=== PATIENT | male | born 1990 | race Hispanic/Latino ===

== ENCOUNTER 2016-10-21 22:11 | Emergency (ER) | payer OTHER ==
--- NOTE | 2016-10-21 22:43 | ED THROAT/DENTAL COMPLAINT ---
History of Present Illness General Chief Complaint: General Adult Stated Complaint: PT TONSIL IS SWOLLEN Source: patient Exam Limitations: no limitations Vital Signs & Intake/Output Vital Signs & Intake/Output Vital Signs Date Time Temp Pulse Resp B/P B/P Pulse O2 O2 Flow FiO2 Mean Ox Delivery Rate 10/22 0108 97.0 78 22 107/63 98 10/21 2218 100.0 89 20 130/80 98 Room Air ED Intake and Output 10/22 0000 10/21 1200 Intake Total Output Total Balance Patient 200 lb Weight Allergies Coded Allergies: No Known Allergies (10/21/16) Reconcile Medications Amoxicillin/Potassium Clav (Augmentin 875-125 Tablet) 875 MG-125 MG TABLET 1 TAB PO BID peritonsillar abscess Methylprednisolone. (Medrol) 4 MG TAB.DS.PK 1 DP PO AD inflammation 6 on day 1 then reduce by one tablet daily until gone Triage Note: PER PT RT TONSIL SWOLLEN PT REPORTS CANT SPEAK BUT DOES ITS JUSST PAINFUL Triage Nurses Notes Reviewed? yes Onset: Gradual Duration: day(s): (2) Timing: no prior history Injury Environment: home Severity: moderate Severity Numbers: 8 Modifying Factors: Worsens With: other (talking). HPI: Patient is a 25-year-old male with no medical history presenting to the emergency department with chief complaint of left-sided neck pain and swelling of worsening over the past 2-3 days. Tactile Fevers, no chills. Denies any nausea or vomiting. Pain is worse with talking and opening his mouth. Denies taking anything to help with symptoms. No sick contacts or recent travel. Denies taking anything help with symptoms. Symptoms worse with swallowing. Denies any drooling. No history of similar symptoms. (SUNITHA POTTER) Past History Travel History Traveled to [place] past 21 day No Medical History Any Pertinent Medical History? see below for history Neurological: NONE EENT: NONE Cardiovascular: NONE Respiratory: NONE Gastrointestinal: NONE Hepatic: NONE Renal: NONE Musculoskeletal: NONE Psychiatric: NONE Endocrine: NONE Surgical History Surgical History: non-contributory Psychosocial History What is your primary language Z[place]ian Tobacco Use: Current Daily Use Daily Tobacco Use Amount/Type: => 5 Cigarettes daily Family History Hx Contributory? No (SUNITHA POTTER) Review of Systems Review of Systems Constitutional: Reports: see HPI, fever. Comments Review of systems: See HPI, All other systems negative. Constitutional, no chills or weight loss HEENT: No visual changes no congestion Cardiovascular: No chest pain ,palpitation , orthopnea or ankle swelling Skin, no jaundice no rashes Respiratory: No dyspnea cough sputum or hemoptysis GI: No nausea no vomiting : No dysuria No hematuria Muscle skeletal: no back pain, no neck pain, Neurologic: No numbness no confusion no rashid Psych: No stress anxiety or depression,. Heme/endocrine: No bruising no bleeding no polyuria or polydipsia Immunology: No splenectomy or history of AIDS (SUNITHA POTTER) Physical Exam Physical Exam General Appearance: well developed/nourished, no apparent distress, alert, awake , comfortable Mouth/Throat: tonsillar swelling Comments: Well-developed well-nourished person in no acute distress HEENT: Pupils equally round and reactive to light and accommodation. Nose is atraumatic. External auditory canal and Tympanic membranes clear. Pharynx is moderately erythematous, uvula slightly shifted to the right, there is swelling noted to the left tonsil, unable to fully appreciate left peritonsillar abscess. Trismus present. Clearing secretions without difficulty. Neck: Supple, left anterior cervical lymphadenopathy, nontender,, normal range of motion without pain or tenderness Back: Nontender Cardiovascular: Regular rate and rhythms no murmurs rubs or gallops, normal JVP Respiratory: Chest nontender. No respiratory distress.breath sounds clear to auscultation bilaterally Extremity: No edema Neuro: Alert oriented x3 Skin: No appreciable rash on exposed skin, skin is warm and dry. Psych: Mood and affect is normal, memory and judgment is normal. Core Measures ACS in differential dx? No Severe Sepsis Present: No Septic Shock Present: No (SUNITHA POTTER) Progress Differential Diagnosis: nicole-tonsillar abscess, pharyngitis, strep Plan of Care: Orders Procedure Date/time Status BLOOD CULTURE 10/21 2249 Active COMPREHENSIVE METABOLIC PANEL 10/21 2249 Complete CBC WITHOUT DIFFERENTIAL 10/21 2249 Complete Laboratory Tests 10/21/16 2317: Anion Gap 16, Estimated GFR > 60, BUN/Creatinine Ratio 17.5, Glucose 104 H, Calcium 9.6, Total Bilirubin 1.0, AST 28, ALT 74 H, Alkaline Phosphatase 131 H , Total Protein 7.8, Albumin 4.4, Globulin 3.4, Albumin/Globulin Ratio 1.3, CBC w Diff NO MAN DIFF REQ, RBC 5.36, MCV 81.3, MCH 27.5, RDW 12.7, MPV 10.3, Gran % 82.4 H, Lymphocytes % 10.9 L, Monocytes % 6.3, Eosinophils % 0.1, Basophils % 0.3, Absolute Granulocytes 10.2 H, Absolute Lymphocytes 1.3, Absolute Monocytes 0.8 H, Absolute Eosinophils 0, Absolute Basophils 0, PUBS MCHC 33.8 Microbiology 10/21 2316 BLOOD: Blood Culture - RECD 10/21 2304 BLOOD: Blood Culture - RECD Diagnostic Imaging: Viewed by Me: CT Scan. Discussed w/RAD: CT Scan. Radiology Impression: PATIENT: RON JIMENEZ PRESENT AGE: 25 PATIENT ACCOUNT NO: [id number] : 92 LOCATION: [facility] ORDERING PHYSICIAN: SUNITHA NEGRETE SERVICE DATE: 10/21/16 EXAM TYPE: CAT - CT NECK W IV CONTRAST EXAMINATION: CT SOFT TISSUE NECK WITH CONTRAST CLINICAL INFORMATION: Fevers. Assess for left peritonsillar abscess. COMPARISON: None. TECHNIQUE: Helical imaging was performed in the axial plane with generation of coronal and sagittal reformatted images. 95 mL of Optiray 320 IV contrast was utilized. FINDINGS: There is fullness in the left palatine tonsillar soft tissues. No peripherally enhancing fluid collection. There is prominent edema with thickening described area of hypoattenuation in the left peritonsillar region which measures 2.1 x 1 x 1.4 cm. Although no rim enhancement is present, this is suspicious for a developing fluid collection. There is the appearance of localized mass effect. Enlarged left cervical lymph nodes are present. For instance, there is a left jugular chain node which measures 1.4 x 1.1 cm on series 4 image 51. More inferiorly there is a 1.5 x 0.9 cm node on image 69. The parotid glands are homogeneous in attenuation. The submandibular glands are normal. The laryngeal structures are normal. No retropharyngeal fluid collection. The thyroid gland is normal. The superior mediastinum is unremarkable. The lung apices are clear. The mastoid air cells are well aerated. Mucous retention cysts within the maxillary sinuses. The remaining paranasal sinuses are well aerated. The temporomandibular joints are normal. No periapical disease is identified. No osseous abnormalities are seen. The imaged portions of the brain parenchyma are unremarkable. IMPRESSION: Soft tissue fullness in the region of the left palatine tonsil. There is an ill- defined area of fluid in this region without rim enhancement, suggestive of phlegmon, with possible early abscess formation. Left cervical lymphadenopathy is likely reactive. DICTATED BY: RAMON SPRING MD DATE/TIME DICTATED:34 EXPLOSIVES TRUCK DRIVER:EVIN DATE/TIME TRANSCRIBED:10/22/1634 CONFIDENTIAL, DO NOT COPY WITHOUT APPROPRIATE AUTHORIZATION. <Electronically signed in Other Vendor System> SIGNED BY: RAMON SPRING MD 10/22/1644 Comments: Patient likely has likely has a left peritonsillar abscess. Unable to appreciate the posterior pharynx Fully. Patient will go for CT scan to fully evaluate size of potential abscess. CBC, CMP and blood cultures drawn and sent. Patient medicated with IV Unasyn, IV Solu-Medrol. Dr. Chin spoke with , the covering ENT. They will see him in the office tomorrow at 9. Patient was given INFORMATION. Patient was given prescription for Augmentin and steroids. They will return for worsening symptoms or concerns. (IVON NEGRETE,SUNITHA) Radiology Impression: PATIENT: RON JIMENEZ PRESENT AGE: 25 PATIENT ACCOUNT NO: [id number] : 92 LOCATION: [facility] ORDERING PHYSICIAN: SUNITHA NEGRETE SERVICE DATE: 10/21/16 EXAM TYPE: CAT - CT NECK W IV CONTRAST EXAMINATION: CT SOFT TISSUE NECK WITH CONTRAST CLINICAL INFORMATION: Fevers. Assess for left peritonsillar abscess. COMPARISON: None. TECHNIQUE: Helical imaging was performed in the axial plane with generation of coronal and sagittal reformatted images. 95 mL of Optiray 320 IV contrast was utilized. FINDINGS: There is fullness in the left palatine tonsillar soft tissues. No peripherally enhancing fluid collection. There is prominent edema with thickening described area of hypoattenuation in the left peritonsillar region which measures 2.1 x 1 x 1.4 cm. Although no rim enhancement is present, this is suspicious for a developing fluid collection. There is the appearance of localized mass effect. Enlarged left cervical lymph nodes are present. For instance, there is a left jugular chain node which measures 1.4 x 1.1 cm on series 4 image 51. More inferiorly there is a 1.5 x 0.9 cm node on image 69. The parotid glands are homogeneous in attenuation. The submandibular glands are normal. The laryngeal structures are normal. No retropharyngeal fluid collection. The thyroid gland is normal. The superior mediastinum is unremarkable. The lung apices are clear. The mastoid air cells are well aerated. Mucous retention cysts within the maxillary sinuses. The remaining paranasal sinuses are well aerated. The temporomandibular joints are normal. No periapical disease is identified. No osseous abnormalities are seen. The imaged portions of the brain parenchyma are unremarkable. IMPRESSION: Soft tissue fullness in the region of the left palatine tonsil. There is an ill- defined area of fluid in this region without rim enhancement, suggestive of phlegmon, with possible early abscess formation. Left cervical lymphadenopathy is likely reactive. DICTATED BY: RAMON SPRING MD DATE/TIME DICTATED:34 EXPLOSIVES TRUCK DRIVER:EVIN DATE/TIME TRANSCRIBED:10/22/1634 CONFIDENTIAL, DO NOT COPY WITHOUT APPROPRIATE AUTHORIZATION. <Electronically signed in Other Vendor System> SIGNED BY: RAMON SPRING MD 10/22/1644 (EUNICE CARTAGENA,LUKAS Gray) Departure Departure Time of Disposition: 46 Disposition: HOME OR SELF CARE Condition: Stable Clinical Impression Primary Impression: Peritonsillar abscess Referrals: AVINASH VALERIO MD PATIENT HAS NO PRIMARY CARE DR (PCP/Family) Additional Instructions: Follow-up with ENT call to make an appointment. Take Augmentin as prescribed. Take steroids as prescribed to help with inflammation. Return for worsening symptoms or concerns. Departure Forms: Customer Survey General Discharge Information Prescriptions: Current Visit Scripts Amoxicillin/Potassium Clav (Augmentin 875-125 Tablet) 1 TAB PO BID #20 TAB Methylprednisolone. (Medrol) 1 DP PO AD #1 DP 6 on day 1 then reduce by one tablet daily until gone (SUNITHA POTTER) PA/PITCH WORKER Co-Sign Statement Statement: ED Attending supervision documentation- [x] I saw and evaluated the patient. I have also reviewed all the pertinent lab results and diagnostic results. I agree with the findings and the plan of care as documented in the PA's/PITCH WORKER's documentation. pt with swollen left tonsil with uvular deviation... discussed with dr. baxter ( ENT). Pt received iv unasyn, fluids, and will be seen at 9am in their office. Pt well appearing at discharge. [] I have reviewed the ED Record and agree with the PA's/PITCH WORKER's documentation. [] Additions or exceptions (if any) to the PAs/PITCH WORKER's note and plan are summarized below: [] (EUNICE CARTAGENA,LUKAS Gray)
[2016-10-21 23:24] LABS: ABSOLUTE BASOPHIL COUNT 0 /CUMM (0.0-0.2); ABSOLUTE EOSINOPHIL COUNT 0 /CUMM (0.0-0.7); ABSOLUTE GRANULOCYTE CT 10.2 /CUMM (1.4-6.5); ABSOLUTE LYMPH COUNT 1.3 /CUMM (1.2-3.4); ABSOLUTE MONOCYTE COUNT 0.8 /CUMM (0.10-0.60); BASOPHIL % 0.3 % (0.0-2.0); EOSINOPHIL % 0.1 % (0-5); GRANULOCYTE % 82.4 % (42.2-75.2); HEMATOCRIT 43.6 % (42-52); MEAN CORPUSCULAR HGB 27.5 PG (27.0-31.0); MEAN CORPUSCULAR HGB CONC 33.8 G/DL (33.0-37.0); MEAN CORPUSCULAR VOLUME 81.3 FL (80.0-94.0); MEAN PLATELET VOLUME 10.3 FL (7.4-10.4); PLATELET COUNT 159 /CUMM (130-400); RBC DISTRIBUTION WIDTH 12.7 % (11.5-14.5); RED BLOOD CELL CT 5.36 /CUMM (4.70-6.10); WHITE BLOOD CELL COUNT 12.3 /CUMM (4.8-10.8)
[2016-10-22] MEDS ORDERED: AUGMENTIN 875-1 EACH PO (00:11)
[2016-10-22] MEDS ORDERED: MEDROL4 M2 PO (00:11)
--- NOTE | 2016-10-22 00:45 | CT SCAN REPORT ---
EXAMINATION: CT SOFT TISSUE NECK WITH CONTRAST CLINICAL INFORMATION: Fevers. Assess for left peritonsillar abscess. COMPARISON: None. TECHNIQUE: Helical imaging was performed in the axial plane with generation of coronal and sagittal reformatted images. 95 mL of Optiray 320 IV contrast was utilized. FINDINGS: There is fullness in the left palatine tonsillar soft tissues. No peripherally enhancing fluid collection. There is prominent edema with thickening described area of hypoattenuation in the left peritonsillar region which measures 2.1 x 1 x 1.4 cm. Although no rim enhancement is present, this is suspicious for a developing fluid collection. There is the appearance of localized mass effect. Enlarged left cervical lymph nodes are present. For instance, there is a left jugular chain node which measures 1.4 x 1.1 cm on series 4 image 51. More inferiorly there is a 1.5 x 0.9 cm node on image 69. The parotid glands are homogeneous in attenuation. The submandibular glands are normal. The laryngeal structures are normal. No retropharyngeal fluid collection. The thyroid gland is normal. The superior mediastinum is unremarkable. The lung apices are clear. The mastoid air cells are well aerated. Mucous retention cysts within the maxillary sinuses. The remaining paranasal sinuses are well aerated. The temporomandibular joints are normal. No periapical disease is identified. No osseous abnormalities are seen. The imaged portions of the brain parenchyma are unremarkable. IMPRESSION: Soft tissue fullness in the region of the left palatine tonsil. There is an ill-defined area of fluid in this region without rim enhancement, suggestive of phlegmon, with possible early abscess formation. Left cervical lymphadenopathy is likely reactive.
[2016-10-22 01:08] VITALS: BP 107/63
== END 2016-10-22 01:09 ==
LOC: ERH 22:11
PROVIDERS: Physician Assistant
DX: J36 Peritonsillar abscess (principal); Z72.0 Tobacco use
CPT/HCPCS: 87040; 96361; 96374; 96375; J2930